=== PATIENT | female | born 1980 | race Caucasian/White ===

== ENCOUNTER 2020-02-08 00:05 | Emergency (ER) | payer BC ==
[~2020-02-08] VITALS: Ht 175.3 cm; Wt 72.6 kg
--- NOTE | 2020-02-08 00:32 | Emergency Room Report ---
History of Present Illness General Chief Complaint: Overdose Source: Friend Present Illness HPI This is a 39-year-old female brought in by her friend with chief complaint of accidental overdose. She is supposed to be on half a tablet of Ambien which is 5 mg. She supposed to take 1-1/2 l tablet of Zoloft which is 75 mg. She accidentally switched both of them and ended up taking 15 mg of Ambien. This occurred about an hour ago. Now she is groggy and sleepy. Her friend was concerned brought her here. She is not suicidal or homicidal. This was accidental. Denies any other complaint. No fever chills but no nausea no vomiting. Nothing made it better. Nothing made it worse. Allergies: Coded Allergies: No Known Allergies (Unverified , 02/08/20) Patient History Past Medical History: see triage record, old chart reviewed, psych hx Past Surgical History: none Pertinent Family History: none Social History: Denies: smoking Now: No Immunizations: other Reviewed Nursing Documentation: PMH: Agreed; PSxH: Agreed Review of Systems Eye: Denies: eye pain, blurred vision ENT: Denies: ear pain, nose congestion, throat swelling Respiratory: Denies: cough, shortness of breath Cardiovascular: Denies: chest pain, palpitations Gastrointestinal: Denies: abdominal pain, diarrhea, nausea, vomiting Musculoskeletal: Denies: back pain, joint pain Skin: Denies: rash Neurological: Denies: headache, numbness Endocrine: Denies: increased thirst, increased urine Hematologic/Lymphatic: Denies: easy bruising All Other Systems: negative except mentioned in HPI Physical Exam Vitals normal Sp02 EP Interpretation: reviewed, normal General Appearance: well appearing, no apparent distress, other - Sleepy Head: normocephalic, atraumatic Eyes: bilateral eye PERRL, bilateral eye EOMI ENT: hearing grossly normal, normal pharynx Neck: full range of motion, supple, no meningismus Respiratory: chest non-tender, lungs clear, normal breath sounds Cardiovascular #1: regular rate, rhythm, no murmur Gastrointestinal: normal bowel sounds, non tender, no mass, no organomegaly, no bruit, non-distended Musculoskeletal: back normal, normal range of motion Psychiatric: mood/affect normal Medical Decision Making Diagnostic Impression: Primary Impression: Drug overdose Qualified Codes: T50.901A - Poisoning by unspecified drugs, medicaments and biological substances, accidental (unintentional), initial encounter ER Course Patient presents with accidental overdose. No evidence of suicidal thoughts homicidal thought. She felt better now. Will discharge home. No lab abnormality. Status: improved Disposition: HOME, SELF-CARE Condition: Stable Additional Instructions: Take your medication as prescribed. Follow-up with your doctor in 7 days as needed. Return if worse. Alex Staley MD Feb 08, 2020 00:32
--- NOTE | 2020-02-08 00:35 | NUR ---
ED Nurse Note: Recieved pt from home, walked in by friends with c/o accidentially taking wrong pills tonight, pt takes sleeping pills and benzos an got them mixed up by accident, pt is awake and lethargic, does answer most questions but sleepy, denies pain or injury, no sob or labored breathing, amount taken is 2 pills just wrong med, pt placed on monitoring, will resume care as ordered and closely monitor.
--- NOTE | 2020-02-08 00:36 | NUR ---
Nurse Note: Surjit Salas, friend :
[2020-02-08 00:48] LABS: BASOPHILS % (AUTO) 1.2 % (0.0-2.0); EOSINOPHILS % (AUTO) 3.6 % (0.0-3.0); HEMATOCRIT 40.9 % (37.0-47.0); HEMOGLOBIN 13.8 G/DL (12.0-16.0); LYMPHOCYTES % (AUTO) 35.8 % (20.0-45.0); MEAN CORPUSCULAR VOLUME 87 FL (80-99); MONOCYTES % (AUTO) 8.3 % (1.0-10.0); NEUTROPHILS % (AUTO) 51.1 % (45.0-75.0); PLATELET COUNT 279 K/UL (150-450); RED CELL DISTRIBUTION WIDTH 11.7 % (11.6-14.8); WHITE BLOOD COUNT 8.1 K/UL (4.8-10.8)
[2020-02-08 00:50] VITALS: BP 119/74
[2020-02-08 00:59] LABS: ANION GAP 10 mmol/L (5-15); BLOOD UREA NITROGEN 12 mg/dL (7-18); CALCIUM 9.3 MG/DL (8.5-10.1); CARBON DIOXIDE 26 MMOL/L (21-32); CHLORIDE 105 MMOL/L (98-107); CREATININE 0.6 MG/DL (0.55-1.30); POTASSIUM 3.8 MMOL/L (3.5-5.1); SODIUM 140 MMOL/L (136-145)
[2020-02-08 01:06] LABS: ALANINE AMINOTRANSFERASE 19 U/L (12-78); ALBUMIN 4.1 G/DL (3.4-5.0); ALBUMIN/GLOBULIN RATIO 1.2 (1.0-2.7); ALKALINE PHOSPHATASE 32 U/L (46-116); ASPARTATE AMINO TRANSFERASE 15 U/L (15-37); BILIRUBIN,TOTAL 0.2 MG/DL (0.2-1.0)
--- NOTE | 2020-02-08 01:10 | NUR ---
ED Nurse Note: Pt sitting on side of bed, more awake and alert, oriented x 4, pt taking fluids well, v/s stable, no sob or labored breathing, pt speaks without slurred speech and asking if she can go ho now, stating that she feels better, MD informed and pt being d/c back to home with friends, pt is ambulatory, used bathroom, no cp, nad noted.
--- NOTE | 2020-02-08 01:14 | NUR ---
Nurse Note: Called Surjit; aware of discharge.
[2020-02-08 01:15] VITALS: BP 121/79
[2020-02-08 01:20] VITALS: BP 121/79
--- NOTE | 2020-02-08 01:20 | NUR ---
ER DISCHARGE NOTE: Patient is cleared to be discharged per ERMD, pt is aox4, on room air, with stable vital signs. pt was given dc instructions, pt was able to verbalize understanding, pt id band and iv site removed without complications. pt is able to ambulate with steady gait. pt took all belongings. with friend.
== END 2020-02-08 01:20 | disposition home or self-care (01) ==
LOC: EMR 00:30
DX: T42.6X1A Poisoning by other antiepileptic and sedative-hypnotic drugs, accidental (unintentional), initial encounter (principal); X58.XXXA Exposure to other specified factors, initial encounter; Y92.9 Unspecified place or not applicable
CPT/HCPCS: 36415; 80053; 85025; 96360; 99284; J7030